=== PATIENT | male | born 1960 | race Caucasian/White ===

== ENCOUNTER 2021-08-05 13:40 | Emergency (ER) | payer BC ==
[2021-08-05] MEDS ORDERED: Sodium Chloride 0.9% 10 ML Syringe FLUSH PRN ×2 (14:11→14:59)
[2021-08-05] MEDS ORDERED: Ondansetron 4 MG/2 ML SDV IVPUSH ONE (14:12)
[2021-08-05] MEDS ORDERED: Lactated Ringers 1,000 ML IV ONE (14:17)
--- NOTE | 2021-08-05 14:23 | EDM.PDOC ---
ED HPI GENERAL MEDICAL PROBLEM - General Chief Complaint: Abdominal Pain Stated Complaint: VOMITTING, ABD PAIN Time Seen by Provider: 08/05/21 13:55 Source of Information: Reports: Patient, Family, Old Records History Limitations: Reports: No Limitations - History of Present Illness INITIAL COMMENTS - FREE TEXT/NARRATIVE: 61 yo male with an active problem of pancreas CA presents with dark emesis and nausea since last night that has been recurrent. Stools have continued to be normal. No fever. Has some bloating and some mild epigastric pain. 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 Onset: Gradual Onset Date: 08/04/21 Duration: Hour(s):, Constant Location: Reports: Abdomen Quality: Reports: Dull Severity: Moderate (vomiting) Improves with: Reports: Other (not eating or drinking) Worsens with: Reports: Eating (or drinking) Context: Reports: Other (See HPI) Associated Symptoms: Reports: Nausea/Vomiting, Other (mild epigastric pain). 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: Other (see below) (none) abdominal Pain Score (Numeric/FACES): 7 - Related Data Allergies Allergy/AdvReac Type Severity Reaction Status Date / Time No Known Allergies Allergy Verified 05/15/21 12:53 Home Meds: Home Meds Dulaglutide [Trulicity] 4.5 mg SQ WEEKLY 06/02/16 [History] Gabapentin 300 mg PO BID 06/02/16 [History] metFORMIN [Glucophage] 1,500 mg PO BID 06/02/16 [History] Albuterol Sulfate [Proair Hfa] 1 - 2 puff INH Q4H PRN 03/31/20 [History] Docusate Sodium 100 mg PO DAILY 03/31/20 [History] Finasteride 5 mg PO DAILY 03/31/20 [History] Furosemide [Lasix] 20 mg PO DAILY 03/31/20 [History] Irbesartan 300 mg PO DAILY 03/31/20 [History] atorvaSTATin [Lipitor] 10 mg PO DAILY 03/31/20 [History] Clobetasol Propionate [Temovate Cream] 1 applic TP BID 05/15/21 [History] Hydrocodone/Acetaminophen [HYDROcodone-Acetaminophen 7.5-325 MG] 1 tab PO Q6H PRN 05/15/21 [History] Insulin Glargine,Hum.Rec.Anlog [Lantus Solostar] 40 unit SQ QAM 05/15/21 [History] Insulin Lispro [Humalog] 6 - 16 unit SQ BIDAC 05/15/21 [History] Mag Citrate/Potassium Citrate [K-mg Citrate 99-70 mg Capsule] 2 cap PO DAILY 05/15/21 [History] Alfuzosin HCl [Alfuzosin HCl ER] 10 mg PO DAILY #30 tab.er.24h 08/05/21 [Rx] Pantoprazole Sodium [Protonix] 40 mg PO DAILY #30 tablet.dr 08/05/21 [Rx] Past Medical History Cardiovascular History: Reports: High Cholesterol, Hypertension Musculoskeletal History: Reports: Neck Pain, Chronic Endocrine/Metabolic History: Reports: Diabetes, Type II Oncologic (Cancer) History: Reports: Pancreatic - Past Surgical History HEENT Surgical History: Reports: Tonsillectomy Musculoskeletal Surgical History: Reports: Arthroscopic Procedure Social & Family History - Tobacco Use Tobacco Use Status *Q: Never Tobacco User - Recreational Drug Use Recreational Drug Use: No ED ROS GENERAL - Review of Systems Review Of Systems: See Below Constitutional: Reports: Malaise HEENT: Reports: No Symptoms Respiratory: Reports: No Symptoms Cardiovascular: Reports: No Symptoms Endocrine: Reports: No Symptoms GI/Abdominal: Reports: Abdominal Pain (mild epigastric), Distension (mild), Nausea, Vomiting. Denies: Black Stool, Bloody Stool, Constipation, Diarrhea, Hematemesis, Hematochezia, Melena : Reports: No Symptoms Musculoskeletal: Reports: No Symptoms Skin: Reports: No Symptoms ED EXAM, GI/ABD - Physical Exam Exam: See Below Exam Limited By: No Limitations General Appearance: Alert, WD/WN, No Apparent Distress Eyes: Bilateral: Normal Appearance Ears: Normal External Exam, Normal Canal, Hearing Grossly Normal Nose: Normal Inspection, No Blood Throat/Mouth: Normal Inspection, Normal Lips, Normal Oropharynx, Normal Voice, No Airway Compromise Head: Atraumatic, Normocephalic Neck: Normal Inspection Respiratory/Chest: No Respiratory Distress, Lungs Clear, Normal Breath Sounds, No Accessory Muscle Use Cardiovascular: Regular Rate, Rhythm, No Edema GI/Abdominal Exam: Soft, Distended (mild). No: Non-Tender (mild epigastric tenderness), No Distention Extremities: Normal Inspection Neurological: Alert, Oriented, CN II-XII Intact, Normal Cognition, No Motor/Sensory Deficits Psychiatric: Normal Affect, Normal Mood Skin Exam: Warm, Dry, Intact, Normal Color, No Rash Course - Vital Signs Last Recorded V/S: Last Vital Signs Temp 36.7 C 08/05/21 18:31 Pulse 101 H 08/05/21 18:31 Resp 16 08/05/21 18:31 BP 183/91 H 08/05/21 18:31 Pulse Ox 99 08/05/21 18:31 - Orders/Labs/Meds Orders: Active Orders 24 hr Category Date Time Status Bladder Scan [RC] ASDIRECTED Care 08/05/21 15:47 Active UA W/MICROSCOPIC [URIN] Stat Lab 08/05/21 14:12 Ordered Iopamidol [Isovue-300 (61%)] Med 08/05/21 15:00 Active 100 ml IV . DIRECTED NS + KCl 20mEq/L [Normal Saline with 20 mEq KCl] 1,000 Med 08/05/21 15:45 Active ml IV ASDIRECTED Pantoprazole [ProTONIX IV] Med 08/05/21 16:00 Active 80 mg IVPUSH .BOLUS Sodium Chloride 0.9% [Normal Saline] 80 ml Med 08/05/21 15:00 Active IV ASDIRECTED Sodium Chloride 0.9% [Saline Flush] Med 08/05/21 14:11 Active 10 ml FLUSH ASDIRECTED PRN Sodium Chloride 0.9% [Saline Flush] Med 08/05/21 14:59 Active 10 ml FLUSH ASDIRECTED PRN Saline Lock Insert [OM.PC] Routine Oth 08/05/21 14:11 Ordered Medication Orders Sodium Chloride (Normal Saline) 80 mls @ 3 mls/sec IV ASDIRECTED ADRIANA Last Admin: 08/05/21 15:15 Dose: 3 mls/sec Documented by: GLORIA Potassium Chloride/Sodium Chloride (Normal Saline With 20 Meq Kcl) 1,000 mls @ 500 mls/hr IV ASDIRECTED ADRIANA Iopamidol (Iopamidol 612 Mg/Ml 100 Ml Bottle) 100 ml IV . DIRECTED ADRIANA Last Admin: 08/05/21 15:15 Dose: 100 ml Documented by: GLORIA Pantoprazole Sodium (Pantoprazole 40 Mg Vial) 80 mg IVPUSH .BOLUS ADRIANA Sodium Chloride (Sodium Chloride 0.9% 10 Ml Syringe) 10 ml FLUSH ASDIRECTED PRN PRN Reason: Keep Vein Open Sodium Chloride (Sodium Chloride 0.9% 10 Ml Syringe) 10 ml FLUSH ASDIRECTED PRN PRN Reason: Keep Vein Open Last Admin: 08/05/21 15:14 Dose: 10 ml Documented by: GLORIA Labs: Laboratory Tests 08/05/21 08/05/21 08/05/21 Range/Units 14:27 14:27 15:32 WBC 8.1 (4.5-11.0) K/uL RBC 3.89 L (4.30-5.90) M/uL Hgb 11.3 L (12.0-15.0) g/dL Hct 34.8 L (40.0-54.0) % MCV 90 (80-98) fL MCH 29 (27-31) pg MCHC 33 (32-36) % Plt Count 157 (150-400) K/uL Sodium 137 L (140-148) mmol/L Potassium 3.3 L (3.6-5.2) mmol/L Chloride 97 L (100-108) mmol/L Carbon Dioxide 26 (21-32) mmol/L Anion Gap 17.3 H (5.0-14.0) mmol/L BUN 19 H (7-18) mg/dL Creatinine 1.1 (0.8-1.3) mg/dL Est Cr Clr Drug Dosing 68.74 mL/min Estimated GFR (MDRD) > 60 (>60) Glucose 219 H (74-106) mg/dL Calcium 8.9 (8.5-10.1) mg/dL Magnesium 1.3 L (1.8-2.4) mg/dL Total Bilirubin 0.7 (0.2-1.0) mg/dL AST 71 H (15-37) U/L ALT 108 H (12-78) U/L Alkaline Phosphatase 555 H (46-116) U/L Total Protein 7.4 (6.4-8.2) g/dL Albumin 3.2 L (3.4-5.0) g/dL Globulin 4.2 H (2.3-3.5) g/dL Albumin/Globulin Ratio 0.8 L (1.2-2.2) Lipase 73 (73-393) U/L Meds: Medications Generic Name Dose Route Start Last Admin Trade Name Freq PRN Reason Stop Dose Admin Sodium Chloride 80 mls @ 3 mls/sec 08/05/21 15:00 08/05/21 15:15 Normal Saline IV 3 mls/sec ASDIRECTED ADRIANA Administration Potassium Chloride/Sodium Chloride 1,000 mls @ 500 mls/hr 08/05/21 15:45 Normal Saline With 20 Meq Kcl IV ASDIRECTED ADRIANA Iopamidol 100 ml 08/05/21 15:00 08/05/21 15:15 Iopamidol 612 Mg/Ml 100 Ml Bottle IV 100 ml . DIRECTED ADRIANA Administration Pantoprazole Sodium 80 mg 08/05/21 16:00 Pantoprazole 40 Mg Vial IVPUSH .BOLUS ADRIANA Sodium Chloride 10 ml 08/05/21 14:11 Sodium Chloride 0.9% 10 Ml Syringe FLUSH ASDIRECTED PRN Keep Vein Open Sodium Chloride 10 ml 08/05/21 14:59 08/05/21 15:14 Sodium Chloride 0.9% 10 Ml Syringe FLUSH 10 ml ASDIRECTED PRN Administration Keep Vein Open Discontinued Medications Generic Name Dose Route Start Last Admin Trade Name Elsa PRN Reason Stop Dose Admin Lactated Ringer's 1,000 mls @ 1,000 mls/hr 08/05/21 14:17 08/05/21 14:59 Ringers, Lactated IV 08/05/21 15:16 1,000 mls/hr BOLUS ONE Administration Metoclopramide HCl 5 mg 08/05/21 15:08 08/05/21 15:42 Metoclopramide 10 Mg/2 Ml Sdv IVPUSH 08/05/21 15:09 5 mg ONETIME ONE Administration Metoclopramide HCl 5 mg 08/05/21 17:29 Metoclopramide 10 Mg/2 Ml Sdv IVPUSH 08/05/21 17:30 ONETIME ONE Ondansetron HCl 4 mg 08/05/21 14:12 08/05/21 14:59 Ondansetron 4 Mg/2 Ml Sdv IVPUSH 08/05/21 14:13 4 mg ONETIME ONE Administration Pantoprazole Sodium Confirm 08/05/21 16:51 08/05/21 17:05 Pantoprazole 40 Mg Vial Administered 08/05/21 16:52 40 mg Dose Administration 40 mg .ROUTE .STK-MED ONE Potassium Chloride 20 meq 08/05/21 16:52 08/05/21 17:05 Potassium Chloride 20 Meq Tab.Er PO 08/05/21 16:53 20 meq ONETIME ONE Administration Simethicone 125 mg 08/05/21 15:52 08/05/21 17:06 Simethicone 125 Mg Tab.Chew PO 08/05/21 15:53 125 mg NOW STA Administration Tamsulosin HCl 0.4 mg 08/05/21 18:43 08/05/21 18:54 Tamsulosin 0.4 Mg Cap.Er PO 08/05/21 18:44 0.4 mg ONETIME ONE Administration - Radiology Interpretation Free Text/Narrative:: CT abd/pelvis with IV contrast- Impression: 1. Liver lesions are new from 2019, and consistent with metastatic disease. 2. Blastic bone lesions are also new from 2019, worrisome for osteoblastic metastases. 3. Dilated biliary tree, and dilated main pancreatic duct. This is suspicious for an isodense mass in the pancreas. Does the patient have a known diagnosis of adenocarcinoma of the pancreas? 4. Distention of the urinary bladder, potentially bladder outlet obstruction secondary to BPH. Suggest correlation with digital rectal exam/PSA, particularly given the sclerotic bone lesions. Adenocarcinoma of the prostate is not excluded. 5. Enhancing left renal mass is no longer visualized, and the patient is presumably post partial left nephrectomy. 6. Gastric distension, and esophageal wall thickening in the distal 1/3 of the thoracic esophagus. This could be therapy related, or related to esophagitis. 7. Indeterminate pulmonary nodules. 8. Report called to Dr. Tanner, ED, 08/05/21, 1550 hours. Dictated by Moe Muñoz MD @ 08/05/2021 3:50:[address] Results Date: 08/05/21 CT Results Time: 15:40 Departure - Departure Time of Disposition: 19:05 Disposition: Home, Self-Care 01 Condition: Fair Clinical Impression: Urinary retention, Esophagitis Nausea and vomiting Qualifiers: Vomiting type: unspecified Qualified Code(s): R11.2 - Nausea with vomiting, unspecified - Discharge Information *PRESCRIPTION DRUG MONITORING PROGRAM REVIEWED*: Not Applicable *COPY OF PRESCRIPTION DRUG MONITORING REPORT IN PATIENT LORIN: Not Applicable Prescriptions: Alfuzosin HCl [Alfuzosin HCl ER] 10 mg PO DAILY #30 tab.er.24h Pantoprazole Sodium [Protonix] 40 mg PO DAILY #30 tablet. Instructions: Nausea and Vomiting, Adult, [id number] Referrals: PCP,None [Primary Care Provider] - Forms: ED Department Discharge Additional Instructions: Don't eat anything tonight, then tomorrow AM start with clear liquids only and advance your diet slowly. Add Alfuzosin ER at bedtime daily starting tomorrow evening for your urinary retention problem. Use Zofran, ondansetron, as needed for nausea control. Take Protonix every day at bedtime for your esophagitis. Your new Rx's were sent to [facility]. Return tomorrow if your vomiting recurs, otherwise see your doctor on Saturday. You may try simethicone for your gaseous retention. We did not stop or change any of your other meds. Sepsis Event Note (ED) - Evaluation Sepsis Screening Result: No Definite Risk - Focused Exam Vital Signs: Vital Signs Temp Pulse Resp BP Pulse Ox 08/05/21 18:31 36.7 C 101 H 16 183/91 H 99 08/05/21 15:21 91 175/100 H 99 08/05/21 13:58 36.6 C 99 16 159/87 H 97 - My Orders Last 24 Hours: My Active Orders 08/05/21 14:11 Sodium Chloride 0.9% [Saline Flush] 10 ml FLUSH ASDIRECTED PRN Saline Lock Insert [OM.PC] Routine 08/05/21 14:12 UA W/MICROSCOPIC [URIN] Stat 08/05/21 14:59 Sodium Chloride 0.9% [Saline Flush] 10 ml FLUSH ASDIRECTED PRN 08/05/21 15:00 Iopamidol [Isovue-300 (61%)] 100 ml IV . DIRECTED Sodium Chloride 0.9% [Normal Saline] 80 ml IV ASDIRECTED 08/05/21 15:45 NS + KCl 20mEq/L [Normal Saline with 20 mEq KCl] 1,000 ml IV ASDIRECTED 08/05/21 15:47 Bladder Scan [RC] ASDIRECTED 08/05/21 16:00 Pantoprazole [ProTONIX IV] 80 mg IVPUSH .BOLUS - Assessment/Plan Last 24 Hours: My Active Orders 08/05/21 14:11 Sodium Chloride 0.9% [Saline Flush] 10 ml FLUSH ASDIRECTED PRN Saline Lock Insert [OM.PC] Routine 08/05/21 14:12 UA W/MICROSCOPIC [URIN] Stat 08/05/21 14:59 Sodium Chloride 0.9% [Saline Flush] 10 ml FLUSH ASDIRECTED PRN 08/05/21 15:00 Iopamidol [Isovue-300 (61%)] 100 ml IV . DIRECTED Sodium Chloride 0.9% [Normal Saline] 80 ml IV ASDIRECTED 08/05/21 15:45 NS + KCl 20mEq/L [Normal Saline with 20 mEq KCl] 1,000 ml IV ASDIRECTED 08/05/21 15:47 Bladder Scan [RC] ASDIRECTED 08/05/21 16:00 Pantoprazole [ProTONIX IV] 80 mg IVPUSH .BOLUS
[2021-08-05] MEDS ORDERED: Sodium Chloride 0.9% 80 ML IV SCH (15:00)
[2021-08-05] MEDS ORDERED: Iopamidol 612 MG/ML 100 ML Bottle IV SCH (15:00)
[2021-08-05] MEDS ORDERED: Metoclopramide 10 MG/2 ML SDV IVPUSH ONE ×2 (15:08→17:29)
[2021-08-05] MEDS ORDERED: NS + KCl 20mEq/L 1,000 ML IV SCH (15:45)
[2021-08-05] MEDS ORDERED: Simethicone 125 MG Tab.Chew PO STA (15:52)
--- NOTE | 2021-08-05 15:54 | CRLCT ---
For Patients: As a result of the 21st Century Cures Act, medical imaging exams and procedure reports are released immediately into your electronic medical record. You may view this report before your referring provider. If you have questions, please contact your health care provider. INDICATION: pain with distention and vomiting, pancreatic cancerkidney resection Indication: Abdominal pain with distention and vomiting. Pancreatic cancer. Kidney resection. Technique: CT of the abdomen and pelvis. 100 cc of Isovue 300 IV. Coronal/sagittal reconstruction images. Comparison: CT of the abdomen and pelvis, 12/25/2018. Findings: Lung bases: Inflammatory changes with fat stranding and mural thickening involving the distal esophagus, partially included on the field of view. Partially visualized catheter within the right atrium. No pleural or pericardial effusion. There is no acute airspace disease. There is no basilar pneumothorax. Linear atelectasis in the left lower lobe. Tiny pulmonary nodules are noted in the lower lobes and lingular segment. These are primarily seen adjacent to the fissures. Largest parenchymal nodule measures 4 millimeters in the lingular segment on image 13, series 2. These are indeterminate for pulmonary metastases. Abdomen/pelvis: Numerous low-density hepatic lesions, which are consistent with metastases. These are new from 12/2018. For example, a 3.0 x 3.0 cm mass in segment , image 96, series 2. Mild gallbladder distention. Dilation of intrahepatic biliary radicals, with the common bile duct measuring up to 16 millimeters. There is also pancreatic duct dilation, measuring up to 8 millimeters. These findings are suspicious for an isodense mass in the head of the pancreas. There is a questionable region of reduced density within the neck of the pancreas on image 79, series 2, which measures 18 millimeters in dimension. No portal vein thrombosis. The splenic vein and SMV are patent. There is gastric distention. There is no adrenal mass. The spleen size is normal. There is a low-density lesion in the spleen measuring 8 millimeters on image 26 of series 2. This is unchanged from previous, and likely incidental/benign. No hydronephrosis or perinephric fluid collection. Small renal hypodensities are likely benign cysts. Enhancing, exophytic left renal mass is no longer visualized, and presumably, surgically absent via nephron sparing surgery. Distension of the urinary bladder. This could be secondary to blow there outlet obstruction given the enlargement of the prostate. The prostate measures 5.3 x 5.9 cm in AP and transverse dimensions, image 215, series 2. Extraperitoneal space of Retzius is clear. There is no mural thickening or perienteric edema involving the small bowel or colon. No transition point. No mucosal hyper enhancement. There is no pelvic sidewall or inguinal lymphadenopathy. The visceral artery branches are patent. IVC is patent. The bone windows demonstrate a sclerotic lesion present in the right ischial tuberosity. This is new from previous, and suspicious for an osteoblastic metastases. See image 234, series 2. This lesion measures 14 millimeters in dimension. There is also a sclerotic lesion in the left iliac bone, which is new from previous, suspicious for a blastic metastasis. This measures 3.5 cm on image 173, series 2. Sclerotic lesion in the left sacral ala, new, measuring 2.7 cm. Several additional sclerotic lesions in the lumbar spine, also suspicious for blastic metastases. Impression: 1. Liver lesions are new from 2019, and consistent with metastatic disease. 2. Blastic bone lesions are also new from 2019, worrisome for osteoblastic metastases. 3. Dilated biliary tree, and dilated main pancreatic duct. This is suspicious for an isodense mass in the pancreas. Does the patient have a known diagnosis of adenocarcinoma of the pancreas? 4. Distention of the urinary bladder, potentially bladder outlet obstruction secondary to BPH. Suggest correlation with digital rectal exam/PSA, particularly given the sclerotic bone lesions. Adenocarcinoma of the prostate is not excluded. 5. Enhancing left renal mass is no longer visualized, and the patient is presumably post partial left nephrectomy. 6. Gastric distension, and esophageal wall thickening in the distal 1/3 of the thoracic esophagus. This could be therapy related, or related to esophagitis. 7. Indeterminate pulmonary nodules. 8. Report called to Dr. Tanner, ED, 08/05/21, 1550 hours. Dictated by Moe Muñoz MD @ 08/05/2021 3:50:35 PM Please note that all CT scans at this facility use dose modulation, iterative reconstruction, and/or weight-based dosing when appropriate to reduce radiation dose to as low as reasonably achievable. Dictated by: Moe Muñoz MD @ 08/05/2021 15:52:00 (Electronically Signed)
[2021-08-05] MEDS ORDERED: Pantoprazole 40 MG Vial IVPUSH SCH (16:00)
[2021-08-05] MEDS ORDERED: Pantoprazole 40 MG Vial ONE (16:51)
[2021-08-05] MEDS ORDERED: Potassium Chloride 20 MEQ Tab.ER PO ONE (16:52)
[2021-08-05 18:32] VITALS: BP 183/91; PULSE 101
[2021-08-05] MEDS ORDERED: Tamsulosin 0.4 MG Cap.ER PO ONE (18:43)
== END 2021-08-05 19:19 | disposition home or self-care (01) ==
LOC: JP.ED 13:40
DX: K20.90 Esophagitis, unspecified without bleeding (principal); R33.9 Retention of urine, unspecified; R11.2 Nausea with vomiting, unspecified; E78.00 Pure hypercholesterolemia, unspecified; I10 Essential (primary) hypertension; E11.9 Type 2 diabetes mellitus without complications; Z79.4 Long term (current) use of insulin; Z79.899 Other long term (current) drug therapy
CPT/HCPCS: 36415; 74177; 80053; 83690; 83735; 85027; 96365; 96366; 96375; 96376; 99284; A9270; C9113; J2405; J2765; J3480; J7120; Q9967

== ENCOUNTER 2021-08-17 06:58 | Day surgery (SDC) | payer BC ==
[~2021-08-17 06:58] MED LIST: Midazolam 1 MG/ML 2 ML SDV ONE; Propofol 200 MG/20 ML SDV ONE; fentaNYL 100 MCG/2 ML SDV ONE
[2021-08-17 07:58] LABS: CORONAVIRUS COVID-19 NAA NEGATIVE (NEGATIVE)
[2021-08-17] MEDS ORDERED: Dextrose 5%-Lactated Ringers 1,000 ML IV SCH (08:00)
[2021-08-17] MEDS ORDERED: Alum Hydrox/Mag Hydrox/Simeth 360 ML, Lidocaine 2% 60 ML PO PRN ×2 (09:43)
[2021-08-17 10:17] VITALS: BP 120/70; PULSE 89
== END 2021-08-17 11:06 | disposition home or self-care (01) ==
LOC: JP.SDS 06:58
PROVIDERS: ATTEND Surgery
DX: K20.90 Esophagitis, unspecified without bleeding (principal); T18.2XXA Foreign body in stomach, initial encounter; K29.70 Gastritis, unspecified, without bleeding; G47.33 Obstructive sleep apnea (adult) (pediatric); K21.9 Gastro-esophageal reflux disease without esophagitis; E11.22 Type 2 diabetes mellitus with diabetic chronic kidney disease; I12.9 Hypertensive chronic kidney disease with stage 1 through stage 4 chronic kidney disease, or unspecified chronic kidney disease; Z01.812 Encounter for preprocedural laboratory examination; Z20.822 Contact with and (suspected) exposure to COVID-19
CPT/HCPCS: 0241U; 43239; 87081; A9270; J1642; J2250; J2704; J3010; J7121